=== PATIENT | female | born 1950 | race Caucasian/White ===

== ENCOUNTER 2019-10-27 12:07 | Outpatient (CLI) | payer MEDICARE, BC, OTHER, SELFPAY ==
--- NOTE | ~2019-10-27 | CT_ITS ---
EXAMINATION: CT abdomen pelvis wo con DATE: 10/27/2019 13:09 INDICATION: Pelvic pain in female. TECHNIQUE: Computed tomography (CT) of the abdomen and pelvis was performed without intravenous contr ast. Automated exposure control and iterative reconstruction technique were employed. The dose-length product was 385.50 mGy-cm. COMPARISON: None. FINDINGS: The visualized portions of the lung bases are clear without pneumonia or pleural effusion. The heart size is normal. No pericardial effusion. The liver, gallbladder, spleen, pancreas, adrenal glands, and right kidney are normal. There is mild atrophy of left kidney. There are [address] ones in left kidney. There is diverticulosis of the colon without evidence of diverticulitis. There a re no dilated loops of bowel. There is liquid stool in the colon correlating with the patient's sympt om of diarrhea. The appendix is not visualized. There are no pathologically enlarged lymph nodes. The re is no free intraperitoneal fluid. There is severe lumbar spondylosis. IMPRESSION: 1. Nonobstructing left kidney stones. Reviewed, dictated and finalized at location A.
== END 2019-10-27 12:08 | disposition home or self-care (01) ==
PROVIDERS: Visit Provider Urology
DX: R10.2 Pelvic and perineal pain (principal); N20.0 Calculus of kidney
CPT/HCPCS: 74176